=== PATIENT | male | born 1955 | race Caucasian/White ===

== ENCOUNTER 2016-07-11 15:01 | Emergency (ER) | payer OTHER ==
[2016-07-11 15:10] VITALS: BP 93/74; PULSE 75; RESP 16; TEMP 98.6; O2SAT 94
--- NOTE | 2016-07-11 15:16 | EDPHY ---
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 Thomas to come in today for cardioversion. He is anticoagulated on Eliquis, has been cardioverted close to 10 times in the past. He tells me he has been in atrial fibrillation for the last 10 days and just feels a little bit fatigued this is primary symptom. No chest pain or shortness of breath. REVIEW OF SYSTEMS: Eye: no change in vision ENT: no sore throat Cardiac: HPI Pulmonary: no cough or SOB Abdomen: no vomiting, diarrhea, abdominal pain Musculoskeletal: no back pain Skin: no rash Neuro: no headache Constitutional: no fever : no urinary symptoms A comprehensive 10 point review of systems is otherwise negative aside from elements mentioned in the history of present illness. PAST MEDICAL HISTORY: Atrial fibrillation with multiple cardioversions, last 1 01/24/2016. Arthritis. Social history: Currently not a smoker. General Appearance: Alert and conversant, cooperative. Eyes: No scleral icterus. ENT, Mouth: Normal mucous membranes. Respiratory: Normal respiratory effort, breath sounds equal, lungs are clear to auscultation. Cardiovascular: Irregularly irregular but no murmur. Gastrointestinal: Abdomen is soft and non tender. Neurological: Alert and oriented x3. Normally conversant. Face symmetric, normal movement and sensation in all extremities. Skin: Warm and dry, no rashes. Musculoskeletal: No peripheral edema and no joint swelling. Psychiatric: Not agitated. Emergency Department course/MDM: Patient ate and drank at 7:00 a.m.. Admits to having some water at noon. Plan to contact his bicycle designer to discuss. 1525: At this point discovered [facility] is awaiting patient for outpt cardioversion; will go there directly. Smoking Status: Former smoker Constitutional: Initial Vital Signs Temperature (C) 37.0 C 07/11/16 15:05 Heart Rate 75 07/11/16 15:05 Respiratory Rate 16 07/11/16 15:05 Blood Pressure 93/74 L 07/11/16 15:05 O2 Sat (%) 94 07/11/16 15:05 O2 Delivery Mode Room Air Allergies/Adverse Reactions: Penicillins Allergy (Intermediate, Verified 01/04/15 15:27) Hives Home Medications: Medication Instructions Recorded Atorvastatin Calcium [Lipitor 20 20 mg PO DAILY 01/04/15 mg (*)] Eliquis 07/11/16 Medical Decision Making - Diagnostics EKG Interpretation: 12-lead EKG interpreted by me; official reading is in trace master. My interpretation is atrial fibrillation with rate 118, no acute ischemic changes. Consult/Admit Bed Type: [facility] 1605 send to [facility] Departure - Departure Disposition: To OP Cath/Surgery Clinical Impression: Atrial fibrillation Qualifiers: Atrial fibrillation type: paroxysmal Qualified Code(s): I48.0 - Paroxysmal atrial fibrillation Condition: Good Referrals: KATY ROWE [Other] - As per Instructions Mehul Thomas MD [Medical Doctor] - As per Instructions
--- NOTE | 2016-07-11 16:01 | CPEKG ---
Heart Rate: 118 RR Interval: 508 QRSD Interval: 88 QT Interval: 332 QTC Interval: 466 QRS [place]: -79 T Wave [place]: 4 EKG Severity - ABNORMAL ECG - EKG Impression: ATRIAL FIBRILLATION, V-RATE 81-152 EKG Impression: MARKEDLY POSTERIOR QRS AXIS Electronically Signed By: Brandon Domínguez 11-Jul-2016 16:06:21
== END 2016-07-11 15:49 | disposition home or self-care (01) ==
DX: I48.91 Unspecified atrial fibrillation (principal)

== ENCOUNTER 2016-07-11 15:24 | Day surgery (SDC) | payer OTHER ==
[2016-07-11] MEDS ORDERED: BENZOCAINE UNIT DOSE SPRAY HURRICAINE MM ONE (15:29)
[2016-07-11] MEDS ORDERED: fentaNYL 100 MCG/2 ML INJ IVP ONE (15:29)
[2016-07-11] MEDS ORDERED: MIDAZOLAM 2 MG/2 ML VIAL IVP ONE (15:29)
[2016-07-11] MEDS ORDERED: PROPOFOL 200 MG/20 ML VIAL IVP ONE (15:29)
[2016-07-11] MEDS ORDERED: ETOMIDATE 20 MG/10 ML VIAL IVP ONE (15:29)
[2016-07-11] MEDS ORDERED: NS 500 ML IV ONE (15:29)
[2016-07-11 15:52] LABS: INR 1.12 (0.83-1.16); PROTIME(PATIENT) 14.3 SEC (12.0-15.0)
[2016-07-11 15:54] LABS: ANION GAP 10 mEq/L (8-16); CALCIUM 9.5 mg/dL (8.5-10.4); CARBON DIOXIDE 21 mEq/l (22-31); CHLORIDE 108 mEq/L (97-110); GLOMERULAR FILTRATION RATE > 60; GLUCOSE 83 mg/dL (70-100); POTASSIUM 4.2 mEq/L (3.5-5.2); SODIUM 139 mEq/L (134-144)
--- NOTE | 2016-07-11 16:39 | CPEKG ---
Heart Rate: 76 RR Interval: 789 P-R Interval: 204 QRSD Interval: 90 QT Interval: 388 QTC Interval: 437 P [place]: 45 QRS [place]: 214 T Wave [place]: 9 EKG Severity - BORDERLINE ECG - EKG Impression: SINUS RHYTHM EKG Impression: PROBABLE LEFT ATRIAL ABNORMALITY EKG Impression: RIGHT AXIS DEVIATION Electronically Signed By: Brandon Domínguez 11-Jul-2016 17:54:33
--- NOTE | 2016-07-11 17:22 | CPR ---
[f rep st] NONINVASIVE CARDIAC PROCEDURE REPORT PROCEDURE PERFORMED: Cardioversion. INDICATION: Atrial fibrillation, symptomatic with palpitations and fatigue. Anticoagulation: Eliq uis, which was started on Friday evening. Anesthesiologist administered IV general anesthesia. After appropriate consents were signed monitor ing was established, RONALDO was done which showed absence of left atrial appendage and left ventricular thrombus. This has been dictated separately. Of note, there is a PFO with bidirectional shunt. A single 200 joule biphasic synchronized DC shock was administered which converted into sinus rhythm . There were no complications. /[id number]/MODL
== END 2016-07-11 17:46 | disposition home or self-care (01) ==
LOC: FSGY 15:24 → FCATH 17:46
PROVIDERS: ATTEND Internal Medicine Cardiovascular Disease
PROC: 5A2204Z Restoration of Cardiac Rhythm, Single (ICD-10-PCS; principal; 2016-07-11)
PROC: B246ZZ4 Ultrasonography of Right and Left Heart, Transesophageal (ICD-10-PCS; principal; 2016-07-11)
DX: I48.91 Unspecified atrial fibrillation (principal)
CPT/HCPCS: J2704

== ENCOUNTER 2017-05-08 10:18 | Day surgery (SDC) | payer OTHER ==
[2017-05-08] MEDS ORDERED: ATROPINE SULFATE 1 MG/10 ML SYR IVP ONE (10:21)
[2017-05-08] MEDS ORDERED: BENZOCAINE UNIT DOSE SPRAY HURRICAINE MM ONE (10:21)
[2017-05-08] MEDS ORDERED: NS 500 ML IV ONE (10:21)
--- NOTE | 2017-05-08 10:34 | CPEKG ---
Heart Rate: 86 RR Interval: 698 QRSD Interval: 92 QT Interval: 372 QTC Interval: 445 QRS [place]: 257 T Wave [place]: 15 EKG Severity - ABNORMAL ECG - EKG Impression: ATRIAL FIBRILLATION, V-RATE 67-114 EKG Impression: MARKEDLY POSTERIOR QRS AXIS EKG Impression: LOW VOLTAGE IN FRONTAL LEADS Electronically Signed By: Saurabh Esquivel 08-May-2017 11:03:19
[2017-05-08 11:14] LABS: INR 1.09 (0.83-1.16); PROTIME(PATIENT) 14.3 SEC (12.0-15.0)
--- NOTE | 2017-05-08 11:18 | PDANEPAE ---
ANE History of Present Illness a fib ANE Past Medical History - Cardiovascular History Hx Arrhythmias: Yes - Pulmonary History Hx Oxygen in Use at Home: No Hx Sleep Apnea: Yes - Endocrine History Hx Diabetes: No - Chronic Pain History Chronic Pain: Yes ANE Review of Systems Review of Systems: ANE Patient History - Allergies Allergies/Adverse Reactions: Penicillins Allergy (Intermediate, Verified 01/04/15 15:27) Hives - Home Medications Home Medications: Atorvastatin Calcium [Lipitor 20 mg (*)] 20 mg PO DAILY 01/04/15 [Last Taken 01/17] Eliquis 07/11/16 [Last Taken 07/11/16] - Smoking Hx Smoking Status: Former smoker ANE Labs/Vital Signs - Labs Result Diagrams: 05/08/17 10:40 - Vital Signs Height: 180 cm Weight: 113.4 kg ANE Physical Exam - Airway Neck exam: FROM Mallampati Score: Class 1 Mouth exam: normal dental/mouth exam - Pulmonary Pulmonary: no respiratory distress - Cardiovascular Cardiovascular: regular rate and rhythym - ASA Status ASA Status: III ANE Anesthesia Plan Total IV Anesthesia: Yes
--- NOTE | 2017-05-08 11:34 | PDHPUP ---
History & Physical Update H&P update statement: This history and physical update is based on an assessment of the patient which was completed after admission or registration (within 24 hours), but prior to the surgery/procedure. H&P update: H&P reviewed & patient examined, no change in patient's condition since H&P completed
[2017-05-08] MEDS ORDERED: PROPOFOL 200 MG/20 ML VIAL ONE ×2 (11:54)
--- NOTE | 2017-05-08 12:39 | POSTANESTH ---
Post Anesthetic Evaluation Cardiovascular Status: Normal, Stable Respiratory Status: Normal, Stable Level of Consciousness/Mental Status: Can Participate in Eval Pain Control: Adequate, Prn Tx Ordered Nausea/Vomiting Control: Adequate, Prn Tx Ordered Complications Possibly Related to Anesthesia: None Noted
--- NOTE | 2017-05-08 13:01 | CPEKG ---
Heart Rate: 57 RR Interval: 1053 P-R Interval: 212 QRSD Interval: 90 QT Interval: 416 QTC Interval: 405 P [place]: 28 QRS [place]: 247 T Wave [place]: 9 EKG Severity - BORDERLINE ECG - EKG Impression: SINUS RHYTHM EKG Impression: PROBABLE LEFT ATRIAL ABNORMALITY EKG Impression: SUPERIOR QRS AXIS Electronically Signed By: Mehul Thomas 08-May-2017 16:45:14
--- NOTE | 2017-05-08 20:53 | ECHO ---
[email or web address] [place] [id number] Main: [phone] Fax: Transesophageal Echocardiography Name: SHANICE RODRÍGUEZ MR#: [id number] Study Date: 05/08/2017 Study Time: 12:09 PM Date of : 1955 Age: 61 year(s) Height: ( ) Weight: ( ) BSA: Gender: Male Examination: RONALDO Indication: Atrial Fibrillation Image Quality: Contrast: Requested by: Mehul Thomas Heart Rate: Rhythm: BP: / Procedure Staff Apparel Rental Clerk: Romana Barrera RD Reading Physician: Sina Mohan MD Requesting Provider: RONALDO Exam Details Conclusions: Normal global systolic LV function. No thrombus in left appendage. Measurements: Chambers Valvular Assessment AV/MV Valvular Assessment TV/PV Normal Normal Normal Name Value Range Name Value Range Name Value Range Additional Measurements: Findings: Left Ventricle: Normal global systolic LV function. Left Atrial Appendage: No thrombus in left appendage. l1n (No Signature Object) Patient: SHANICE RODRÍGUEZ Study Date: 05/08/2017 Page 1 of 1 12:09 PM [id number]
--- NOTE | 2017-05-09 08:21 | EPPROC ---
Electrophysiology Procedure Note: Procedure: CV Indication: AF Procedure: AFter LA clot was ruled out, pt continued to be sedated by anesthesia staff. Synchronized DCCV with 200J performed. pt converted to SR Conclusion: Successful CV Patient Problems: Problems Problem Status Onset Atrial fibrillation Acute Dizziness Acute
== END 2017-05-08 14:00 | disposition home or self-care (01) ==
LOC: FCATH 10:18
PROVIDERS: ATTEND Internal Medicine Cardiovascular Disease
PROC: B245ZZ4 Ultrasonography of Left Heart, Transesophageal (ICD-10-PCS; principal; 2017-05-08)
PROC: 5A2204Z Restoration of Cardiac Rhythm, Single (ICD-10-PCS; principal; 2017-05-08)
DX: I48.1 Persistent atrial fibrillation (principal); R42 Dizziness and giddiness
CPT/HCPCS: J2704

== ENCOUNTER 2017-09-01 09:27 | Day surgery (SDC) | payer OTHER ==
[2017-09-01] MEDS ORDERED: NS 500 ML IV ONE (09:35)
[2017-09-01] MEDS ORDERED: BENZOCAINE UNIT DOSE SPRAY HURRICAINE MM ONE (09:35)
[2017-09-01] MEDS ORDERED: ATROPINE SULFATE 1 MG/10 ML SYR IVP ONE (09:35)
[2017-09-01] MEDS ORDERED: MIDAZOLAM 2 MG/2 ML VIAL IVP ONE (09:35)
[2017-09-01] MEDS ORDERED: fentaNYL 100 MCG/2 ML INJ IVP ONE (09:35)
--- NOTE | 2017-09-01 09:59 | CPEKG ---
Heart Rate: 79 RR Interval: 759 QRSD Interval: 92 QT Interval: 384 QTC Interval: 441 QRS [place]: 124 T Wave [place]: 13 EKG Severity - ABNORMAL ECG - EKG Impression: ATRIAL FIBRILLATION EKG Impression: RIGHT AXIS DEVIATION Electronically Signed By: Ulysses Mansfield 01-Sep-2017 10:55:54
[2017-09-01 10:12] LABS: INR 1.05 (0.83-1.16); PROTIME(PATIENT) 13.9 SEC (12.0-15.0)
--- NOTE | 2017-09-01 10:50 | PDANEPAE ---
ANE History of Present Illness Patient presents for RONALDO/Cardioversion ANE Past Medical History - Cardiovascular History Hx Arrhythmias: Yes - Pulmonary History Hx Oxygen in Use at Home: No Hx Sleep Apnea: Yes - Endocrine History Hx Diabetes: No - Chronic Pain History Chronic Pain: Yes ANE Review of Systems Review of Systems: ANE Patient History - Allergies Allergies/Adverse Reactions: Penicillins Allergy (Intermediate, Verified 01/04/15 15:27) Hives - Home Medications Home medications: home medication list seen and reviewed Home Medications: Atorvastatin Calcium [Lipitor 20 mg (*)] 20 mg PO DAILY 01/04/15 [Last Taken 01/17] Eliquis 07/11/16 [Last Taken 07/11/16] - NPO status NPO Status: no food or drink >8 hours - Anes Hx Anes Hx: no prior problems - Smoking Hx Smoking Status: Former smoker ANE Labs/Vital Signs - Labs Result Diagrams: 09/01/17 09:55 - Vital Signs Height: 185 cm Weight: 113.1 kg ANE Physical Exam - Airway Neck exam: FROM Mallampati Score: Class 2 Mouth exam: normal dental/mouth exam - Pulmonary Pulmonary: no respiratory distress - Cardiovascular Cardiovascular: irregularly irregular - ASA Status ASA Status: III ANE Anesthesia Plan Anesthesia Plan: GA with mask (RBA discussed, patient agrees to proceed.)
[2017-09-01] MEDS ORDERED: PROPOFOL 200 MG/20 ML VIAL ONE ×2 (10:51→10:53)
[2017-09-01] MEDS ORDERED: LIDOCAINE 2% 100 MG/5 ML SYR ONE (10:51)
--- NOTE | 2017-09-01 10:59 | PDGENHP ---
History & Physical Chief Complaint: symptomatic afib Relevant Physical Exam: s1s2 irreg cta ao3 Cardiorespiratory Assessment: af - nela + cv this am
--- NOTE | 2017-09-01 11:21 | PDTEE1 ---
RONALDO Cardioversion Procedure Procedure: electrical cardioversion, transesophageal echo Indications: atrial fibrillation Consent: signed and in chart Anticoagulation: eliquis Procedural Details: Pads were placed in anterior-posterior position. RONALDO probe was advanced and standard images obtained. There is no evidence of left atrial or left atrial appendage thrombus. Synchronized cardioversion attempt #1: 200J Results: normal sinus rhythm Conclusions: successful RONALDO cardioversion Patient Problems: Problems Problem Status Onset Dizziness Acute Atrial fibrillation Acute
--- NOTE | 2017-09-01 11:24 | POSTANESTH ---
Post Anesthetic Evaluation Cardiovascular Status: Similar to Pre-Op Cond Respiratory Status: Similar to Pre-op Cond. Level of Consciousness/Mental Status: Alert and Oriented Pain Control: Adequate, Prn Tx Ordered Nausea/Vomiting Control: Adequate, Prn Tx Ordered Complications Possibly Related to Anesthesia: None Noted
--- NOTE | 2017-09-01 11:27 | CPEKG ---
Heart Rate: 52 RR Interval: 1154 P-R Interval: 212 QRSD Interval: 92 QT Interval: 436 QTC Interval: 406 P [place]: 0 QRS [place]: 131 T Wave [place]: 11 EKG Severity - OTHERWISE NORMAL ECG - EKG Impression: SINUS RHYTHM EKG Impression: RIGHT AXIS DEVIATION Electronically Signed By: Mehul Thomas 02-Sep-2017 08:51:14
--- NOTE | 2017-09-02 17:06 | ECHO ---
[email or web address] [address] [address] Main: [phone] Fax: Transesophageal Echocardiography Name: SHANICE RODRÍGUEZ MR#: [id number] Study Date: 09/01/2017 Study Time: 10:53 AM Date of : 1955 Age: 62 year(s) Height: ( ) Weight: ( ) BSA: Gender: Male Examination: RONALDO Indication: Pre Cardioversion Image Quality: Contrast: Requested by: Mehul Thomas Heart Rate: Rhythm: BP: 156 mmHg/100 mmHg Procedure Staff Wood Crafter: Tang Limon RDCS Reading Physician: Mehul Thomas MD Requesting Provider: RONALDO Exam Details Conclusions: Normal global systolic LV function. 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 No thrombus in left appendage. Mild mitral valve regurgitation is present. Proceeded with successful elective DC cardioversion.. Measurements: Chambers Valvular Assessment AV/MV Valvular Assessment TV/PV Normal Normal Normal Name Value Range Name Value Range Name Value Range Additional Measurements: Findings: Left Ventricle: Normal global systolic LV function. No regional wall motion abnormality. 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 Left Atrial Appendage: Good color flow doppler in the left atrial appendage. No thrombus in left appendage. Right Atrium: The right atrium is normal in size. Mitral Valve: Patient: SHANICE RODRÍGUEZ Study Date: 09/01/2017 Page 1 of 2 10:53 AM The mitral valve is normal in appearance and function. Mild mitral valve regurgitation is present. Aortic Valve: The aortic valve is tri-leaflet. The aortic valve is normal in appearance. Tricuspid Valve: The tricuspid valve is normal in appearance and function. Pulmonic Valve: The pulmonic valve is normal in appearance and function. Aorta: The aorta is normal. Pericardium: No pericardial effusion. There is pericardial fat. Exam Comments: Proceeded with successful elective DC cardioversion.. l1n (No Signature Object) Patient: SHANICE RODRÍGUEZ Study Date: 09/01/2017 Page 2 of 2 10:53 AM [id number]
== END 2017-09-01 12:24 | disposition home or self-care (01) ==
LOC: FCATH 09:27
PROVIDERS: ATTEND Internal Medicine Cardiovascular Disease
PROC: B246ZZ4 Ultrasonography of Right and Left Heart, Transesophageal (ICD-10-PCS; principal; 2017-09-01)
PROC: 5A2204Z Restoration of Cardiac Rhythm, Single (ICD-10-PCS; principal; 2017-09-01)
DX: Q21.1 Atrial septal defect (principal); I34.0 Nonrheumatic mitral (valve) insufficiency; Z79.01 Long term (current) use of anticoagulants
CPT/HCPCS: J2001; J2704